=== PATIENT | female | born 1955 | race Caucasian/White ===

== ENCOUNTER 2024-01-30 22:11 | Inpatient (IN) | payer MEDICARE, OTHER ==
[~2024-01-30] VITALS: Ht 157.5 cm; Wt 54.9 kg
[2024-01-30 22:42] LABS: BASOPHILS % (AUTO) 0.8 % (0.0-2.0); EOSINOPHILS # (AUTO) 0.1 K/uL (0.0-0.7); EOSINOPHILS % (AUTO) 1.9 % (0.0-6.0); HEMATOCRIT 38 % (33-45); LYMPHOCYTES # (AUTO) 2.1 K/uL (0.8-4.8); LYMPHOCYTES % (AUTO) 36.1 % (20.0-44.0); MEAN CORPUSCULAR HEMOGLOBIN 31 PG (26.0-33.0); MEAN CORPUSCULAR HGB CONC 35 g/dl (31.0-36.0); MEAN CORPUSCULAR VOLUME 90 fL (82-100); MONOCYTES # (AUTO) 0.5 K/uL (0.1-1.30); MONOCYTES % (AUTO) 9.3 % (2.0-12.0); NEUTROPHILS % (AUTO) 51.9 % (43.0-81.0); PLATELET COUNT (AUTO) 167 K/uL (150-450); RED BLOOD CELL COUNT(AUTO) 4.23 MIL/uL (4.0-5.2); RED CELL DISTRIBUTION WIDTH 13.4 % (11.5-15.0); WHITE BLOOD COUNT (AUTO) 5.8 K/uL (4.3-11.0)
[2024-01-30 23:05] LABS: CALCIUM, SERUM 10.5 mg/dL (8.5-10.1); CARBON DIOXIDE 25 mmol/L (21-32); CHLORIDE 107 mmol/L (98-107); CREATININE 0.8 mg/dL (0.6-1.3); GLUCOSE 104 mg/dL (74-106); POTASSIUM 3.8 mmol/L (3.5-5.1); SODIUM SERUM 142 mmol/L (136-145); UREA NITROGEN, BLOOD 14 mg/dL (7-18)
[2024-01-30 23:11] LABS: ACETAMINOPHEN <10 ug/ml (10-30); ALANINE AMINOTRANSFERASE 28 U/L (12-78); ALBUMIN 2.8 g/dL (3.4-5.0); ALCOHOL, BLOOD < 3 mg/dL (0-10); ALKALINE PHOSPHATASE 99 U/L (46-116); ASPARTATE AMINOTRANSFERASE 9 U/L (15-37); BILIRUBIN,DIRECT 0.1 mg/dL (0.0-0.2); BILIRUBIN,TOTAL 0.2 mg/dL (0.2-1.0); SALICYLATE 2.9 mg/dL (2.8-20.0); TOTAL PROTEIN, SERUM 6.7 g/dL (6.4-8.2)
[2024-01-30 23:33] LABS: APPEARANCE,URINE SLIGHTLY CLOUDY (CLEAR); BILIRUBIN,URINE NEGATIVE (NEGATIVE); BLOOD, URINE TRACE-INTA Ery/uL (NEGATIVE); COLOR,URINE YELLOW (YELLOW); KETONES,URINE NEGATIVE (NEGATIVE); LEUKOCYTE ESTERASE ,URINE 2+ (NEGATIVE); NITRITE, URINE POSITIVE (NEGATIVE); PROTEIN,URINE NEGATIVE (NEGATIVE); UGLUCOSE NEGATIVE (NEGATIVE); UROBILINOGEN,URINE 0.2 EU/dL (0.2)
[2024-01-30 23:38] LABS: ADD URINE CULTURE YES; BACTERIA,URINE Moderate /HPF (None Seen); SQUAMOUS EPITHELIAL CELL,UR Rare /HPF (None Seen); WBC,URINE 21-50 /HPF (0-3)
[2024-01-30 23:44] LABS: AMPHETAMINE, URINE NEGATIVE (NEGATIVE); BARBITURATE, URINE NEGATIVE (NEGATIVE); BENZODIAZEPINE, URINE NEGATIVE (NEGATIVE); CANNABINOID, URINE NEGATIVE (NEGATIVE); COCCAINE, URINE NEGATIVE (NEGATIVE); OPIATE, URINE NEGATIVE (NEGATIVE); PHENCYCLIDINE SCREEN,URINE NEGATIVE (NEGATIVE)
[2024-01-30] MEDS ORDERED: OXYB5TAB16 PO (23:52)
[2024-01-30] MEDS ORDERED: DIVA500T54 PO (23:52)
[2024-01-30] MEDS ORDERED: ERYT3.5O9 EACHEYE (23:52)
[2024-01-30] MEDS ORDERED: RISP4TAB70 PO (23:52)
[2024-01-30] MEDS ORDERED: SENN8.6T19 PO (23:52)
[2024-01-30] MEDS ORDERED: TRAZ-257 PO (23:52)
[2024-01-30] MEDS ORDERED: ZIPR20CA2 PO (23:52)
[2024-01-30] MEDS ORDERED: BENZ0.5T43 PO (23:52)
[2024-01-30] MEDS ORDERED: DOCU100C36 PO (23:52)
[2024-01-30] MEDS ORDERED: DIPH50CA38 PO (23:52)
[2024-01-31] MEDS ORDERED: NITROFURANTOIN/MONOHYDRATE MACROCRYSTALS 100 MG CAPSULE ONE (00:13)
[2024-01-31] MEDS: NITROFURANTOIN/MONOHYDRATE MACROCRYSTALS 100 MG CAPSULE PO ONE (00:16)
[2024-01-31] MEDS ORDERED: DIVA-76 PO (08:01)
[2024-01-31] MEDS ORDERED: ACET325T53 PO (08:01)
[2024-01-31] MEDS ORDERED: ACETAMINOPHEN 325 MG TABLET PO PRN ×2 (08:30→09:30)
[2024-01-31] MEDS ORDERED: ERYTHROMYCIN BASE OPHTH 3.5 GM TUBE EACHEYE SCH (08:30)
[2024-01-31] MEDS ORDERED: ZIPRASIDONE 20 MG CAPSULE PO SCH (09:00)
[2024-01-31 09:09] VITALS: BP 145/68; TEMP 97.5; O2SAT 95
[2024-01-31] MEDS ORDERED: QUETIAPINE FUMARATE 25 MG TABLET PO PRN (09:30)
[2024-01-31] MEDS ORDERED: ZOLPIDEM TARTRATE 5 MG TABLET PO PRN (09:30)
[2024-01-31] MEDS ORDERED: MAG HYDROX/AL HYDROX/SIMETH 30 ML UDC PO PRN (09:30)
[2024-01-31] MEDS ORDERED: MAGNESIUM HYDROXIDE 30 ML UDC PO PRN (09:30)
[2024-01-31] MEDS: OXYBUTYNIN CHLORIDE 5 MG TABLET PO SCH (09:58)
[2024-01-31] MEDS: DOCUSATE SODIUM 100 MG CAPSULE PO SCH (09:58)
[2024-01-31] MEDS: BLOOD SUGAR DIAGNOSTIC 1 EACH STRIP IN ONE (09:58)
[2024-01-31] MEDS: CEPHALEXIN MONOHYDRATE 500 MG CAPSULE PO SCH (09:58)
[2024-01-31] MEDS: SENNOSIDES 8.6 MG TABLET PO SCH (09:58)
[2024-01-31] MEDS: DIVALPROEX SODIUM 250 MG TABLET.DR PO SCH (14:21)
[2024-01-31 16:00] VITALS: BP 125/69; TEMP 98; O2SAT 97
[2024-01-31 20:00] VITALS: BP 132/63; TEMP 98.1; O2SAT 98
[2024-01-31] MEDS: OLANZAPINE 2.5 MG TABLET PO SCH (21:22)
[2024-01-31] MEDS: ERYTHROMYCIN BASE OPHTH 3.5 GM TUBE EACHEYE SCH (21:33)
[2024-02-01 08:00] VITALS: BP 132/66; TEMP 97.6; O2SAT 96
[2024-02-01 08:09] LABS: CHOLESTEROL 173 mg/dL (<200); HDL CHOLESTEROL 52 mg/dL (40-60); LDL 90 mg/dL (0-99); TRIGLYCERIDES 121 mg/dL (30-150)
[2024-02-01 08:11] LABS: ALBUMIN 2.8 g/dL (3.4-5.0); BILIRUBIN,TOTAL 0.3 mg/dL (0.2-1.0); CREATININE 0.8 mg/dL (0.6-1.3); TOTAL PROTEIN, SERUM 6.7 g/dL (6.4-8.2)
[2024-02-01 16:00] VITALS: BP 120/67; TEMP 97.6; O2SAT 96
[2024-02-01 20:00] VITALS: BP 124/71; TEMP 98.1; O2SAT 96
[2024-02-02 08:00] VITALS: BP 130/70; TEMP 97.5; O2SAT 94
[2024-02-02 16:00] VITALS: BP 119/94; TEMP 97.5; O2SAT 96
[2024-02-02] MEDS: OLANZAPINE 2.5 MG TABLET PO SCH (20:46)
[2024-02-02 21:08] VITALS: BP 153/71; TEMP 98.1; O2SAT 97
[2024-02-03 08:00] VITALS: BP 144/86; TEMP 97.9; O2SAT 100
[2024-02-03] MEDS: DIVALPROEX SODIUM 125 MG TABLET.DR PO SCH (14:29)
[2024-02-03 16:00] VITALS: BP 116/67; TEMP 98.2; O2SAT 99
[2024-02-04 08:00] VITALS: BP 125/72; TEMP 98.7; O2SAT 99
[2024-02-04 16:00] VITALS: BP 100/56; TEMP 98.6; O2SAT 96
[2024-02-04 20:22] VITALS: BP 124/58; TEMP 97.9; O2SAT 95
[2024-02-05 08:00] VITALS: BP 127/73; TEMP 97.8; O2SAT 96
[2024-02-05 16:02] VITALS: BP 125/84; TEMP 98; O2SAT 96
[2024-02-05 20:17] VITALS: BP 130/65; TEMP 98.3; O2SAT 97
[2024-02-05] MEDS: OLANZAPINE 10 MG TABLET PO SCH (21:10)
[2024-02-06 08:00] VITALS: BP 123/78; TEMP 97.9; O2SAT 98
[2024-02-06] MEDS: OLANZAPINE 2.5 MG TABLET PO SCH (08:18)
[2024-02-06] MEDS: OLANZAPINE 10 MG VIAL IM STA (15:46)
[2024-02-06 16:00] VITALS: BP 102/46; TEMP 97.6; O2SAT 97
[2024-02-06 20:00] VITALS: BP 115/61; TEMP 97.9; O2SAT 98
[2024-02-07 08:00] VITALS: BP 124/79; TEMP 97.7; O2SAT 96
[2024-02-07] MEDS: DIVALPROEX SODIUM 125 MG TABLET.DR PO SCH (14:52)
[2024-02-07 16:00] VITALS: BP 99/61; TEMP 97.5; O2SAT 98
[2024-02-07 20:00] VITALS: BP 108/60; TEMP 98.1; O2SAT 97
[2024-02-08 08:16] VITALS: BP 106/61; TEMP 98; O2SAT 95
[2024-02-08] MEDS: OLANZAPINE 5 MG TABLET PO SCH (08:33)
[2024-02-08 16:00] VITALS: BP 122/66; TEMP 98; O2SAT 100
[2024-02-08 20:00] VITALS: BP 162/65; TEMP 98.3; O2SAT 98
[2024-02-09 08:00] VITALS: BP 99/68; TEMP 97.6; O2SAT 98
[2024-02-09 16:00] VITALS: BP 102/72; TEMP 98.7; O2SAT 97
[2024-02-09 20:00] VITALS: BP 122/62; TEMP 98; O2SAT 97
[2024-02-10 08:00] VITALS: BP 106/62; TEMP 97.7; O2SAT 95
[2024-02-10 16:06] VITALS: BP 117/59; TEMP 97.9; O2SAT 97
[2024-02-10] MEDS: OLANZAPINE 10 MG TABLET PO SCH (21:11)
[2024-02-10 21:22] VITALS: BP 112/59; TEMP 97.9; O2SAT 97
[2024-02-11 08:00] VITALS: BP 168/83; TEMP 98.6; O2SAT 95
[2024-02-11] MEDS: DIVALPROEX SODIUM 500 MG TABLET.DR PO SCH (08:59)
[2024-02-11 16:00] VITALS: BP 140/75; TEMP 98.7; O2SAT 96
[2024-02-11 20:55] VITALS: BP 109/58; TEMP 98.3; O2SAT 96
[2024-02-12 08:00] VITALS: BP 103/60; TEMP 98.1; O2SAT 94
[2024-02-12 16:00] VITALS: BP 90/65; TEMP 98; O2SAT 96
[2024-02-12 20:36] VITALS: BP 108/75; TEMP 98.2; O2SAT 98
[2024-02-13 08:00] VITALS: BP 109/66; TEMP 98.7; O2SAT 97
[2024-02-13 16:00] VITALS: BP 134/65; TEMP 98.6; O2SAT 96
[2024-02-13 20:00] VITALS: BP 100/46; TEMP 98.3; O2SAT 96
[2024-02-14 08:00] VITALS: BP 113/63; TEMP 97.6; O2SAT 96
[2024-02-14 16:00] VITALS: BP 141/60; TEMP 98; O2SAT 94
[2024-02-14 20:00] VITALS: BP 103/68; TEMP 97.8; O2SAT 100
[2024-02-15 08:00] VITALS: BP_SYST 125; BP_SYST 133; BP_DIAS 67; BP_DIAS 71; TEMP 97.6; TEMP 97.7; O2SAT 95; O2SAT 96
[2024-02-15 16:00] VITALS: BP 96/60; TEMP 98.2; O2SAT 98
[2024-02-15 20:00] VITALS: BP 99/58; TEMP 97.8; O2SAT 95
[2024-02-15 23:00] VITALS: BP 109/68; TEMP 98; O2SAT 98
[2024-02-16 08:00] VITALS: BP 158/64; TEMP 97.7; O2SAT 97
== END 2024-02-16 13:40 | DRG 885 ==
LOC: ER 22:38 → GPS 01-31 07:21
PROVIDERS: ADMIT Psychiatry & Neurology Psychiatry; ATTEND Nurse Practitioner Acute Care
DX: F29 Unspecified psychosis not due to a substance or known physiological condition (principal); N39.0 Urinary tract infection, site not specified; B96.20 Unspecified Escherichia coli [E. coli] as the cause of diseases classified elsewhere; F20.0 Paranoid schizophrenia; Z79.899 Other long term (current) drug therapy; Z91.199 Patient's noncompliance with other medical treatment and regimen due to unspecified reason; N32.81 Overactive bladder; Z20.822 Contact with and (suspected) exposure to COVID-19; Z73.6 Limitation of activities due to disability; F31.89 Other bipolar disorder
CPT/HCPCS: 36415; 80048-TC; 80053-TC; 80061-TC; 80076-TC; 80164-TC; 81001; 82962-TC; 85025-TC; 87081-TC; 87086-TC; 97110-TC; 97116-TC; 97530-TC; G0480; J3490